=== PATIENT | male | born 1945 | race Caucasian/White ===

== ENCOUNTER 2025-04-01 11:42 | Emergency (ER) | payer MEDICARE, OTHER ==
[2025-04-01 12:23] LABS: BASOPHILS ABSOLUTE AUTO 0.02 10^3/uL (0.00-0.10); BASOPHILS PERCENT AUTO 0.5 % (0.0-1.0); EOSINOPHILS ABSOLUTE AUTO 0.02 10^3/uL (0.10-0.30); EOSINOPHILS PERCENT AUTO 0.5 % (1.0-3.0); IMMATURE GRAN ABSOLUTE AUTO 0.01 10^3/uL (0.00-0.04); IMMATURE GRAN PERCENT AUTO 0.2 % (0.0-0.4); LYMPHOCYTES ABSOLUTE AUTO 0.88 10^3/uL (1.00-4.00); LYMPHOCYTES PERCENT AUTO 21.7 % (20.0-40.0); MEAN PLATELET VOLUME 10.5 fL (7.4-10.4); MONOCYTES ABSOLUTE AUTO 0.71 10^3/uL (0.10-0.80); MONOCYTES PERCENT AUTO 17.5 % (2.0-8.0); NEUTROPHILS ABSOLUTE AUTO 2.42 10^3/uL (2.50-7.00); NEUTROPHILS PERCENT AUTO 59.6 % (50.0-70.0); PLATELET COUNT,PLT 122 10^3/uL (150-400); RED BLOOD CELL COUNT 4.21 10^6/uL (4.50-6.00); RED CELL DISTRIBUTION WIDTH 14.0 % (11.5-14.5); WHITE BLOOD CELL COUNT,WBC 4.06 10^3/uL (5.00-10.00)
[2025-04-02 08:05] LABS: CARBON DIOXIDE,CO2 17.0 mmol/L (21.0-32.0); CHLORIDE,CL 108.0 mmol/L (98-107); GLUCOSE RANDOM 107.0 mg/dL (70-140); POTASSIUM,K 3.9 mmol/L (3.5-5.1); SODIUM,NA 138.0 mmol/L (136-145)
[2025-04-02 08:06] LABS: BLOOD UREA NITROGEN,BUN 23.0 mg/dL (6-25); CREATININE 1.02 mg/dL (0.51-1.17); EST CRCL DRUG DOSING (CG) 57.76 mL/min; ESTIMATED GFR 74.0 mL/min (>=60); PROTEIN TOTAL,TP 7.4 g/dL (6.4-8.2)
[2025-04-02 08:07] LABS: ALANINE AMINOTRANSFERASE,ALT 31.0 U/L (12-78); ASPARTATE AMNIOTRANSFERASE,AST 54.0 U/L (15-37); BILIRUBIN TOTAL 0.7 mg/dL (0.2-1.0)
== END 2025-04-01 16:37 | disposition home or self-care (01) ==
LOC: KA.ED 11:42
DX: U07.1 COVID-19 (principal); I10 Essential (primary) hypertension; Z91.09 Other allergy status, other than to drugs and biological substances; Z79.899 Other long term (current) drug therapy; Z79.01 Long term (current) use of anticoagulants
CPT/HCPCS: 36415; 71045; 71046; 80053; 83880; 85025; 87428-QW; 99285